=== PATIENT | female | born 1985 | race Caucasian/White ===

== ENCOUNTER 2016-12-30 05:32 | Inpatient (IN) | payer OTHER ==
[~2016-12-30] VITALS: Ht 165.1 cm; Wt 103.1 kg
[2016-12-30 05:41] VITALS: BP 126/78
[2016-12-30] MEDS ORDERED: PREN-3 PO (05:48)
[2016-12-30] MEDS ORDERED: OXYTOCIN 30U/ 0.9% NaCL 500ML 500 ML IV ONE (05:55)
[2016-12-30] MEDS ORDERED: FENTANYL PF 100 MCG/2ML IV PRN (06:00)
[2016-12-30] MEDS ORDERED: TERBUTALINE 1 MG/ML, 1ML IVPush PRN ×2 (06:00)
[2016-12-30] MEDS ORDERED: FENTANYL PF 100 MCG/2ML IVPush PRN (06:00)
[2016-12-30] MEDS ORDERED: ONDANSETRON 2MG/ML, 2ML IVPush PRN ×2 (06:00→13:00)
[2016-12-30] MEDS ORDERED: TERBUTALINE 1 MG/ML, 1ML SQ PRN (06:00)
[2016-12-30] MEDS: LACTATED RINGERS 1,000 ML IV SCH ×4 (06:08→20:41)
[2016-12-30 06:18] LABS: HEMATOCRIT 39.6 % (34.6-47.8); HEMOGLOBIN 13.3 g/dL (11.7-16.4); WHITE BLOOD COUNT 13.9 x10^3/uL (3.4-10)
[2016-12-30] MEDS ORDERED: OXYTOCIN 30U/ 0.9% NaCL 500ML 500 ML ONE ×2 (06:54→19:53)
[2016-12-30] MEDS ORDERED: NEWBORN KIT ONE ×2 (06:54→17:46)
[2016-12-30] MEDS ORDERED: ONDANSETRON 2MG/ML, 2ML ONE ×2 (07:09→13:02)
[2016-12-30] MEDS ORDERED: FENTANYL PF 100 MCG/2ML ONE (07:28)
[2016-12-30] MEDS ORDERED: BUPIVACAINE 0.25% ONE (07:28)
[2016-12-30] MEDS ORDERED: FENTANYL/BUPIV./NS/PF 250 ML EPIDCONT ONE (07:29)
[2016-12-30] MEDS ORDERED: FLU VACC QS2017-18 (36MOS+) UP/PF 0.5 ML IM-VACC ONE (07:30)
[2016-12-30] MEDS ORDERED: FENTANYL/BUPIV./NS/PF 250 ML EPIDCONT SCH (08:00)
[2016-12-30] MEDS ORDERED: LACTATED RINGERS 1,000 ML IVBOLUS PRN (08:00)
[2016-12-30] MEDS ORDERED: EPHEDRINE 50 MG/ML, 1ML IVPush PRN (08:00)
[2016-12-30] MEDS ORDERED: OXYTOCIN 30U/ 0.9% NaCL 500ML 500 ML IV PRN (10:46)
[2016-12-30] MEDS ORDERED: ACETAMINOPHEN 325 MG TABLET PO PRN (13:47)
[2016-12-30] MEDS ORDERED: D5%-LACTATED RINGERS 1,000 ML IV SCH (13:47)
[2016-12-30] MEDS ORDERED: ACETAMINOPHEN 325 MG TABLET ONE (13:57)
[2016-12-30] MEDS ORDERED: LIDOCAINE 1%, 20ML ONE (16:15)
[2016-12-30] MEDS ORDERED: MISOPROSTOL 200 MCG TABLET ONE (16:16)
[2016-12-30] MEDS ORDERED: METOCLOPRAMIDE 5 MG/ML, 2ML ONE (18:26)
[2016-12-30] MEDS ORDERED: METOCLOPRAMIDE 5 MG/ML, 2ML IVPush ONE (18:30)
[2016-12-30] MEDS ORDERED: METOCLOPRAMIDE 5 MG/ML, 2ML IV PRN (20:00)
[2016-12-30] MEDS ORDERED: DIPH,PERTUSS(ACELL),TET VAC/PF NC IM-VACC PRN (20:00)
[2016-12-30] MEDS ORDERED: MISOPROSTOL 200 MCG TABLET PR PRN (20:00)
[2016-12-30] MEDS ORDERED: HYDROcodone/APAP 5/325 TABLET PO PRN ×2 (20:00)
[2016-12-30] MEDS ORDERED: DOCUSATE 100 MG CAPSULE PO PRN (20:00)
[2016-12-30] MEDS: OXYTOCIN 30U/ 0.9% NaCL 500ML 500 ML IV SCH (20:44)
[2016-12-30] MEDS: IBUPROFEN 600 MG TABLET PO PRN (21:03)
[2016-12-30 21:10] VITALS: BP 112/70
[2016-12-31 01:40] VITALS: BP 116/74
[2016-12-31] MEDS: IBUPROFEN 600 MG TABLET PO PRN ×2 (05:08→11:33)
[2016-12-31 05:10] VITALS: BP 118/81
[2016-12-31 05:25] LABS: HEMATOCRIT 40.7 % (34.6-47.8); HEMOGLOBIN 13.8 g/dL (11.7-16.4); WHITE BLOOD COUNT 20.2 x10^3/uL (3.4-10)
[2016-12-31] MEDS: OXYTOCIN 30U/ 0.9% NaCL 500ML 500 ML IV SCH ×2 (05:33→15:33)
[2016-12-31 08:00] VITALS: BP 122/81
[2016-12-31] MEDS: LACTATED RINGERS 1,000 ML IV SCH ×3 (08:00→16:00)
[2016-12-31] MEDS ORDERED: PRENATAL VIT/IRON/FA 1 EACH TABLET PO SCH (09:00)
[2016-12-31] MEDS ORDERED: IBUP-1222 PO (09:00)
[2016-12-31] MEDS ORDERED: OXYC-302 PO (09:00)
[2016-12-31 11:38] VITALS: BP 128/80
== END 2016-12-31 17:46 | disposition home or self-care (01) | DRG 775 ==
LOC: LDOP 05:32 → LDIP 05:57 → 2NW 20:30
PROVIDERS: ADMIT Obstetrics & Gynecology; ATTEND Obstetrics & Gynecology
PROC: 10E0XZZ Delivery of Products of Conception, External Approach (ICD-10-PCS; principal; 2016-12-31)
PROC: 0HQ9XZZ Repair Perineum Skin, External Approach (ICD-10-PCS; 2016-12-31)
DX: O69.81X0 Labor and delivery complicated by cord around neck, without compression, not applicable or unspecified (principal); O70.0 First degree perineal laceration during delivery; Z37.0 Single live birth; Z23 Encounter for immunization; Z88.0 Allergy status to penicillin
CPT/HCPCS: 36415; 85025; 86850; 86900; 90686; 90715; J2405; J2590; J2765; J3010; J7120; J7121